=== PATIENT | male | born 1990 | race Caucasian/White ===

== ENCOUNTER 2017-11-18 10:40 | Emergency (ER) | payer MEDICAID ==
[~2017-11-18] VITALS: Ht 172.7 cm; Wt 64.4 kg
[~2017-11-18 10:40] MED LIST: ALBU8.5H8 IH; BECL8.7A6 INH; CLON-365 PO; HYDR-3241 PO; LORA10TA75 PO; [UNRECOGNIZED DRUG - OTHER]
[2017-11-18 10:41] VITALS: BP 114/76
== END 2017-11-18 11:45 | disposition home or self-care (01) ==
LOC: ED 11:40
DX: R10.32 Left lower quadrant pain (principal)
CPT/HCPCS: 99281